=== PATIENT | female | born 1955 | race Caucasian/White ===

== ENCOUNTER 2023-12-19 19:39 | Emergency (ER) | payer OTHER ==
[2023-12-19 20:08] LABS: Absolute Eosinophils 0.3 K/uL (0-0.5); Absolute Lymphocytes (CBC) 1.4 K/uL (0.7-4.9); Absolute Monocytes 0.4 K/uL (0.1-1.3); Absolute Neutrophil 2.2 K/uL (1.8-8.0); Eosinophils % 7.4 % (0-4.4); Hematocrit 40.7 % (36.0-45.0); Hemoglobin 14.3 g/dL (12.0-15.0); Lymphocytes % 31.1 % (15.3-44.8); MCH 31.1 pg (27.0-35.0); MCHC 35.2 g/dL (32.0-36.0); MCV 88.3 fL (80-100); MPV 6.9 fL (7.6-11.3); Monocytes % 9.1 % (3.3-12.3); Neutrophils % 51.4 % (41.7-73.7); Nucleated Red Blood Cells % 0.2 % (0-0); PT Prothrombin Time 13.6 SECONDS (9.4-12.5); Platelets 221 thou/uL (152-406); Protime INR 1.22; RBC Red Blood Cell Count 4.61 M/uL (3.86-4.86); Red Cell Distribution Width 13.2 % (12.1-15.2)
[2023-12-19] MEDS ORDERED: ONDANSETRON 4 MG/2 ML VIAL ONE (20:23)
[2023-12-19] MEDS ORDERED: HEPARIN 5000 UNIT/ML 1 ML VIAL ONE (20:24)
[2023-12-19] MEDS ORDERED: NA CHLORIDE 0.9% 500 ML ONE (20:24)
[2023-12-19] MEDS ORDERED: LORAZEPAM 1 MG TABLET ONE (20:24)
[2023-12-19] MEDS ORDERED: MORPHINE 2 MG/ML SYR ONE (20:24)
[2023-12-19] MEDS ORDERED: HEPARIN/D5W 25,000 UNIT/500 ML BAG IV ONE (20:25)
[2023-12-19] MEDS ORDERED: NA CHLORIDE 0.9% 1,000 ML ONE (20:25)
[2023-12-19 20:36] LABS: ALT/SGPT 37 U/L (13-56); AST/SGOT 30 U/L (15-37); Albumin 3.6 g/dL (3.4-5.0); Albumin/Globulin Ratio 0.8 (1.1-1.8); Alkaline Phosphatase 63 U/L (45-117); Anion Gap 9.2 mEq/L (5.0-15.0); BUN Blood Urea Nitrogen 19 mg/dL (7-18); Bicarbonate 30 mEq/L (21-32); Bilirubin Total 0.4 mg/dL (0.2-1.0); Globulin 4.4 g/dL (2.3-3.5); Glomerular Filtration Rate 66 ml/min (=/>90); Glucose Level 120 mg/dL (74-106); Magnesium 2.2 mg/dL (1.6-2.4); NT PRO-BNP 52 pg/mL (<125); Potassium 3.2 mEq/L (3.5-5.1); Sodium Level 137 mEq/L (136-145); Troponin High Sensitivity 17.2 pg/mL (<58.9)
[2023-12-19 20:38] LABS: Bilirubin Direct < 0.2 mg/dL (0-0.2); Bilirubin Indirect, Calculated 0.2 mg/dL (0.2-0.8)
--- NOTE | 2023-12-19 20:49 | RAD REPORT ---
Procedure: Chest Single View HISTORY: Chest pain COMPARISON: none FINDINGS: The lungs appear clear of acute infiltrate. No significant pleural effusion noted. The heart is normal size. IMPRESSION: No acute abnormality is displayed.
--- NOTE | 2023-12-19 21:12 | ER ---
Nurse's Notes [facility] Name: Qian Dasilva Age: 68 yrs Sex: Female : 1955 Arrival Date: 12/19/2023 Time: 19:39 Bed 6 Private MD: Diagnosis: Unstable angina;Near syncope Presentation: 12/18 19:39 Chief complaint: Patient states: Dizziness when I stand for the last 3 days and today I vc1 started having chest pain. I have been off of my plavix since December 10. Coronavirus screen: Client denies travel out of the [place] in the last 14 days. At this time, the client does not indicate any symptoms associated with coronavirus-19. Ebola Screen: Patient negative for fever greater than or equal to 101.5 degrees Fahrenheit, and additional compatible Ebola Virus Disease symptoms Patient denies exposure to infectious person. Patient denies travel to an Ebola-affected area in the 21 days before illness onset. No symptoms or risks identified at this time. 19:39 Method Of Arrival: Ambulatory vc1 19:49 Initial Sepsis Screen: Does the patient meet any 2 criteria? No. Patient's initial vc1 sepsis screen is negative. Does the patient have a suspected source of infection? No. Patient's initial sepsis screen is negative. Risk Assessment: Do you want to hurt yourself or someone else? Patient reports no desire to harm self or others. Note History of carotid blockage and cardiac stent post NSTEMI 2 years ago. Onset of symptoms was December 16, 2023. Care prior to arrival: None. Activity prior to arrival: None. Mechanism of Injury: No Mechanism of Injury. Transition of care: patient was not received from another setting of care. 19:49 Acuity: ANGELO 3 vc1 Historical: - Allergies: 20:04 Demerol (Hallucinations); vc1 - Home Meds: 20:04 Plavix 75 mg Oral tablet [Active]; aspirin 81 mg Oral tablet,chewable [Active]; vc1 atorvastatin 80 mg oral tablet [Active]; valsartan-hydrochlorothiazide 320-12.5 mg oral tablet [Active]; clopidogrel 75 mg oral tablet [Active]; Vitamin D3 oral [Active]; Metoprolol Tartrate Oral [Active]; trazodone 50 mg Oral tablet every day at bedtime [Active]; Ozempic subcutaneous 0.5 mg every week [Active]; - PMHx: 20:04 Hypertensive disorder; Diabetes mellitus; Blocked Carotid arteries; vc1 - PSHx: 20:04 cardiac stent; Ligation of fallopian tube; Total abdominal hysterectomy; vc1 - Immunization history:: Client reports receiving the 2nd dose of the Covid vaccine, Pneumococcal vaccine is up to date, Flu vaccine is up to date. - Infectious Disease History:: Denies. - Social history:: Smoking status: Patient denies any tobacco usage or history of. - Family history:: not pertinent. Screenin:[address] [facility] ED Fall Risk Assessment (Adult) History of falling in the last 3 months, kj2 including since admission No falls in past 3 months (0 pts) Confusion or Disorientation No (0 pts) Intoxicated or Sedated No (0 pts) Impaired Gait No (0 pts) Mobility Assist Device Used No (0 pt) Altered Elimination No (0 pt) Score/Fall Risk Level 0 - 2 = Low Risk Maintained a safe environment, Educated pt \T\ family on fall prevention, incl call for assistance when getting out of bed, Provided non-skid footwear. Abuse screen: Denies threats or abuse. Denies injuries from another. Nutritional screening: No deficits noted. Tuberculosis screening: No symptoms or risk factors identified. Assessment: 19:50 General: Appears in no apparent distress. uncomfortable, Behavior is calm, cooperative. kj2 Pain: Complains of pain in CHEST Pain began. 19:50 Pain: Pain does not radiate. Pain began gradually. Neuro: Level of Consciousness is kj2 awake, alert, obeys commands, Oriented to person, place, time, situation. Cardiovascular: Capillary refill < 3 seconds Patient's skin is warm and dry. Respiratory: Airway is patent Respiratory effort is unlabored. GI: No signs and/or symptoms were reported involving the gastrointestinal system. : No signs and/or symptoms were reported regarding the genitourinary system. 20:37 Reassessment: Patient appears in no apparent distress at this time. Patient is alert, kj2 oriented x 3, equal unlabored respirations, skin warm/dry/pink. 21:30 Reassessment: Patient appears in no apparent distress at this time. Patient and/or cp4 family updated on plan of care and expected duration. Pain level reassessed. Patient is alert, oriented x 3, equal unlabored respirations, skin warm/dry/pink. 22:30 Reassessment: Patient appears in no apparent distress at this time. Patient and/or cp4 family updated on plan of care and expected duration. Pain level reassessed. Patient is alert, oriented x 3, equal unlabored respirations, skin warm/dry/pink. Vital Signs: 19:49 BP 149 / 68; Pulse 76; Resp 14; Temp 98; Pulse Ox 100% ; Weight 68.04 kg; Height 5 ft. vc1 2 in. ; Pain 3/10; 19:50 BP 92 / 75; Pulse 75; Resp 20; Pulse Ox 100% ; kj2 20:14 Weight 69.63 kg; cp4 20:36 BP 138 / 78; Pulse 68; Resp 20; Pulse Ox 100% on R/A; kj2 21:30 BP 144 / 61; Pulse 58; Resp 18; Pulse Ox 100% ; cp4 22:30 BP 126 / 56; Pulse 60; Resp 18; Pulse Ox 98% ; cp4 19:49 Body Mass Index 27.44 (69.63 kg, 157.48 cm) vc1 19:49 Pain Scale: Adult vc1 [place] Coma Score: 20:57 Eye Response: spontaneous(4). Motor Response: obeys commands(6). Verbal Response: sp4 oriented(5). Total: 15. ED Course: 19:39 Arm band placed on right wrist. vc1 19:44 Patient arrived in ED. ty 19:45 Kamlesh Castro MD is Attending Physician. sp4 19:50 EKG done, by ED staff, reviewed by Kamlesh Castro MD. Inserted saline lock: 22 gauge kj2 in right antecubital area, using aseptic technique. Blood collected. Flushed with 10 mL NS. 20:03 Triage completed. vc1 20:04 Nicole Liao is Primary Nurse. cp4 20:30 No provider procedures requiring assistance completed. kj2 20:35 Inserted saline lock: 22 gauge in left forearm, using aseptic technique. Blood rv1 collected. Flushed with 10 mL NS. 20:36 Ptt, Activated Sent. rv1 20:56 [facility] Transfer joiner called to initiate transfer, spoke with Mark. ty 21:[id number] Castro. ty 21:15 Unable to get sweatband cutting machine operator on the line. ty 21:31 [facility] called for [id number]. ty 22:10 [facility] called for patient transport left voice mail. ty 22:11 Troponin High Sensitivity Sent. cp4 22:16 [place] called again no answer. ty 22:19 [facility] ambulance called for patient transfer, ETA 10-15 minutes. ty 22:25 [facility] called to take ER patient [facility] on premises for 2nd floor patient, [facility] ambulance ty will take 2nd floor patient. Administered Medications: 20:40 Drug: Heparin ([place]-Bolus No thrombolytic) - HEParin IVP 60 units/kg IVP once; Max 5000 cp4 units {Co-Signature: kj2 (Taisha Cat RN).} Route: IVP; Site: right antecubital; 21:10 Follow up: Response: No adverse reaction cp4 20:41 Drug: morphine IVP or IV 2 mg IVP once over 4 mins Route: IVP; Infused Over: 4 mins; cp4 Site: right antecubital; 21:10 Follow up: Response: No adverse reaction cp4 20:41 Drug: NS 0.9% IV 500 ml IV at bolus once; to be given as a bolus over 30 minutes Route: cp4 IV; Rate: bolus; Site: left forearm; 21:01 Follow up: IV Status: Completed infusion cp4 20:42 Drug: LORazepam PO 1 mg PO once Route: PO; cp4 21:10 Follow up: Response: No adverse reaction cp4 20:42 Drug: Ondansetron IVP 8 mg IVP once; over 2 minutes Route: IVP; Site: right antecubital;cp4 21:10 Follow up: Response: No adverse reaction cp4 20:51 Drug: Heparin ([place] Drip) 12 units/kg/[place] - ([place] [address] units, D5W IV 500 ml) IV at cp4 calculated rate Per protocol; Max initial rate 1000 units/hr {Co-Signature: kj2 (Taisha Cat RN).} Route: IV; Rate: calculated rate; Site: right antecubital; 21:01 Drug: NS 0.9% IV 1000 ml IV at 125 ml/hr continuous Route: IV; Rate: 125 ml/hr; Site: cp4 left forearm; 22:11 Drug: Potassium Chloride PO 40 mEq PO once Route: PO; cp4 22:56 Follow up: Response: No adverse reaction cp4 Medication: 20:33 VIS not applicable for this client. kj2 Outcome: 21:11 ER care complete, transfer ordered by . sp4 23:28 Patient left the ED. cp4 Signatures: Debbie Pastor RN RN vc1 Hyun Weiss rv1 Kamlesh Castro MD MD sp4 Nicole Liao cp4 Hermes Newman Taisha Cat RN RN kj2 Tiasha Cat RN kj2 Corrections: (The following items were deleted from the chart) 20:32 20:31 BP 92 / 75; Pulse 75bpm; Resp 20bpm; Pulse Ox 100%; kj2 kj2 22:13 22:10 [facility] called for patient transport ty
--- NOTE | 2023-12-19 21:12 | EDPHYS ---
Physician Documentation [facility] Name: Qian Dasilva Age: 68 yrs Sex: Female : 1955 Arrival Date: 12/19/2023 Time: 19:39 Bed 6 Private MD: ED Physician Kamlesh Castro HPI: 12/18 19:45 This 68 yrs old Female presents to ER via Unassigned with complaints of Chest sp4 Pain. 20:52 This is a 68-year-old female who presents with 2 days of dizziness, chest discomfort, sp4 near syncope, shortness of breath on exertion, also there is an episode of diaphoresis prior to arrival. Has history of coronary artery disease with prior stent to right coronary artery performed at [facility]. Patient states she has been off her Plavix for the past 8 days secondary to dental procedure. Did take her Plavix this morning. She also took her aspirin 325 mg this morning. Patient reports feeling generalized weakness, dizziness, shortness of breath chest discomfort. Is compliant with her other medications. . Historical: - Allergies: 20:04 Demerol (Hallucinations); vc1 - Home Meds: 20:04 Plavix 75 mg Oral tablet [Active]; aspirin 81 mg Oral tablet,chewable [Active]; vc1 atorvastatin 80 mg oral tablet [Active]; valsartan-hydrochlorothiazide 320-12.5 mg oral tablet [Active]; clopidogrel 75 mg oral tablet [Active]; Vitamin D3 oral [Active]; Metoprolol Tartrate Oral [Active]; trazodone 50 mg Oral tablet every day at bedtime [Active]; Ozempic subcutaneous 0.5 mg every week [Active]; - PMHx: 20:04 Hypertensive disorder; Diabetes mellitus; Blocked Carotid arteries; vc1 - PSHx: 20:04 cardiac stent; Ligation of fallopian tube; Total abdominal hysterectomy; vc1 - Immunization history:: Client reports receiving the 2nd dose of the Covid vaccine, Pneumococcal vaccine is up to date, Flu vaccine is up to date. - Infectious Disease History:: Denies. - Social history:: Smoking status: Patient denies any tobacco usage or history of. - Family history:: not pertinent. ROS: 20:57 Constitutional: Negative for fever, chills, and weight loss, positive today for sp4 generalized weakness, dizziness, near syncope, shortness of breath, chest discomfort, positive today for diaphoresis 20:57 All other systems are negative, Exam: 20:57 Constitutional: This is a well developed, well nourished patient who is awake, alert, sp4 and in no acute distress. Head/Face: Normocephalic, atraumatic. Eyes: Pupils equal round and reactive to light, extra-ocular motions intact. Lids and lashes normal. Conjunctiva and sclera are not injected. Cornea within normal limits. Periorbital areas with no swelling, redness, or edema. ENT: Nares patent. No nasal discharge, no septal abnormalities noted. Tympanic membranes are normal and external auditory canals are clear. Oropharynx with no redness, swelling, or masses, exudates, or evidence of obstruction, uvula midline. Mucous membranes moist. Neck: Trachea midline, no thyromegaly or masses palpated, and no cervical lymphadenopathy. Supple, full range of motion without nuchal rigidity, or vertebral point tenderness. Chest/axilla: Normal chest wall appearance and motion. Nontender with no deformity. No lesions are appreciated. Cardiovascular: Regular rate and rhythm with a normal S1 and S2. No gallops, murmurs, or rubs. Normal PMI, no JVD. No pulse deficits. Respiratory: Lungs have equal breath sounds bilaterally, clear to auscultation and percussion. No rales, rhonchi or wheezes noted. No increased work of breathing, no retractions or nasal flaring. Abdomen/GI: Soft, with normal bowel sounds. No distension or tympany. No guarding or rebound. No evidence of tenderness throughout. Back: No spinal tenderness. No costovertebral tenderness. Skin: Warm, dry with normal turgor. Normal color with no rashes, no lesions, and no evidence of cellulitis. MS/ Extremity: Pulses equal, no cyanosis. Neurovascular intact. Full, normal range of motion. Neuro: Awake and alert, GCS 15, oriented to person, place, time, and situation. Cranial nerves II-XII grossly intact. Motor strength 5/5 in all extremities. Sensory grossly intact. Psych: Awake, alert, with orientation to person, place and time. Behavior, mood, and affect are within normal limits 20:57 ECG was reviewed by the Attending Physician. EKG at 1951 reveals normal sinus rhythm sp4 rate 74, left axis deviation. [place] normal EKG. Vital Signs: 19:49 BP 149 / 68; Pulse 76; Resp 14; Temp 98; Pulse Ox 100% ; Weight 68.04 kg; Height 5 ft. vc1 2 in. ; Pain 3/10; 19:50 BP 92 / 75; Pulse 75; Resp 20; Pulse Ox 100% ; kj2 20:14 Weight 69.63 kg; cp4 20:36 BP 138 / 78; Pulse 68; Resp 20; Pulse Ox 100% on R/A; kj2 21:30 BP 144 / 61; Pulse 58; Resp 18; Pulse Ox 100% ; cp4 22:30 BP 126 / 56; Pulse 60; Resp 18; Pulse Ox 98% ; cp4 19:49 Body Mass Index 27.44 (69.63 kg, 157.48 cm) vc1 19:49 Pain Scale: Adult vc1 [place] Coma Score: 20:57 Eye Response: spontaneous(4). Motor Response: obeys commands(6). Verbal Response: sp4 oriented(5). Total: 15. MDM: 19:47 Medical Screening Exam initiated sp4 20:57 Differential diagnosis: acute myocardial infarction, acute pericarditis, anxiety, sp4 coronary artery disease chest wall pain, congestive heart failure esophagitis, gastritis. HEART Score: History: Highly Suspicious (2), ECG: Non specific repolarization disturbance / LBTB / PM (1), Age: > or = 65 years (2), Risk Factors: > or = 3 Risk factors for atherosclerotic disease (2), Troponin: < or = 1 x Normal Limit (0), Total Score = 7. The patient was not given aspirin in the Emergency Department. Patient reports taking aspirin within the past 24 hours. Data reviewed: vital signs, nurses notes, old medical records, lab test result(s), EKG, radiologic studies, plain films. 21:02 ED course: HISTORY: Chest pain COMPARISON: none FINDINGS: The lungs appear clear of sp4 acute infiltrate. No significant pleural effusion noted. The heart is normal size. IMPRESSION: No acute abnormality is displayed. . 12/18 20:09 Order name: Protime (+INR); Complete Time: 20:35 EDMS 12/18 20:09 Order name: CBC with Automated Diff; Complete Time: 20:35 EDMS 12/18 20:18 Order name: Ptt, Activated cp4 12/18 20:27 Order name: PTT, Activated Partial Thromb; Complete Time: 20:35 EDMS 12/18 20:38 Order name: Basic Metabolic Panel; Complete Time: 20:46 EDMS 12/18 20:38 Order name: Liver (Hepatic) Function; Complete Time: 20:46 EDMS 12/18 20:38 Order name: Troponin High Sensitivity; Complete Time: 20:46 EDMS 12/18 20:38 Order name: NT PRO-BNP; Complete Time: 20:46 EDMS 12/18 20:38 Order name: Magnesium; Complete Time: 20:46 EDMS 12/18 21:19 Order name: Troponin High Sensitivity sp4 12/18 22:39 Order name: Troponin High Sensitivity; Complete Time: 22:43 EDMS 12/18 20:49 Order name: RAD; Complete Time: 21:12 EDMS 12/18 19:46 Order name: Cardiac monitoring; Complete Time: 20:16 sp4 12/18 19:46 Order name: EKG - Nurse/Tech; Complete Time: 20:17 sp4 12/18 19:46 Order name: IV Saline Lock; Complete Time: 20:17 sp4 12/18 19:46 Order name: Labs collected and sent; Complete Time: 20:17 sp4 12/18 19:46 Order name: O2 Per Protocol; Complete Time: 20:17 sp4 12/18 19:46 Order name: O2 Sat Monitoring; Complete Time: 20:17 sp4 EC:57 Rate is 74 beats/min. Rhythm is regular, Normal Sinus Rhythm. Left axis deviation sp4 noted. SC interval is normal. QRS interval is normal. QT interval is normal. No Q waves. T waves are Normal. No ST changes noted. Clinical impression: No evidence of ischemia. Interpreted by me. Reviewed by me. Administered Medications: 20:40 Drug: Heparin ([place]-Bolus No thrombolytic) - HEParin IVP 60 units/kg IVP once; Max 5000 cp4 units {Co-Signature: kj2 (Taisha Cat RN).} Route: IVP; Site: right antecubital; 21:10 Follow up: Response: No adverse reaction cp4 20:41 Drug: morphine IVP or IV 2 mg IVP once over 4 mins Route: IVP; Infused Over: 4 mins; cp4 Site: right antecubital; 21:10 Follow up: Response: No adverse reaction cp4 20:41 Drug: NS 0.9% IV 500 ml IV at bolus once; to be given as a bolus over 30 minutes Route: cp4 IV; Rate: bolus; Site: left forearm; 21:01 Follow up: IV Status: Completed infusion cp4 20:42 Drug: LORazepam PO 1 mg PO once Route: PO; cp4 21:10 Follow up: Response: No adverse reaction cp4 20:42 Drug: Ondansetron IVP 8 mg IVP once; over 2 minutes Route: IVP; Site: right antecubital;cp4 21:10 Follow up: Response: No adverse reaction cp4 20:51 Drug: Heparin ([place] Drip) 12 units/kg/[place] - ([place] [address] units, D5W IV 500 ml) IV at cp4 calculated rate Per protocol; Max initial rate 1000 units/hr {Co-Signature: kj2 (Taisha Cat RN).} Route: IV; Rate: calculated rate; Site: right antecubital; 21:01 Drug: NS 0.9% IV 1000 ml IV at 125 ml/hr continuous Route: IV; Rate: 125 ml/hr; Site: cp4 left forearm; 22:11 Drug: Potassium Chloride PO 40 mEq PO once Route: PO; cp4 22:56 Follow up: Response: No adverse reaction cp4 Disposition Summary: 12/19/23 21:11 Transfer Ordered Notes: Transfer Location: [facility] sp4 Reason: Higher level of care sp4 Condition: Stable sp4 Problem: new sp4 Symptoms: have improved sp4 Accepting Physician: [facility], Attending MD (12/19/23 23:28) cp4 Diagnosis - Unstable angina sp4 - Near syncope sp4 Forms: - Medication Reconciliation Form sp4 - SBAR form sp4 Signatures: Dispatcher [employer] Debbie Duran RN RN 1 Kamlesh Castro MD MD sp4 Nicole Liao cp4 Taisha Cat RN kj2 Corrections: (The following items were deleted from the chart) 19:46 19:46 BASIC METABOLIC PANEL+C.LAB.BRZ ordered. EDMS EDMS 19:46 19:46 CBC+H.LAB.BRZ ordered. EDMS EDMS 19:46 19:46 HEPATIC FUNCTION+C.LAB.BRZ ordered. EDMS EDMS 19:46 19:46 MAGNESIUM+C.LAB.BRZ ordered. EDMS EDMS 19:46 19:46 PROBNP+C.LAB.BRZ ordered. EDMS EDMS 19:46 19:46 PROTIME (+INR)+COAG.LAB.BRZ ordered. EDMS EDMS 19:46 19:46 Troponin High Sensitivity+C.LAB.BRZ ordered. EDMS EDMS 19:46 19:46 Chest Single View+RAD.RAD.BRZ ordered. EDMS EDMS 23:28 21:11 [facility], Attending sp4 cp4
[2023-12-19] MEDS ORDERED: POTASSIUM CL SA 10 MEQ TAB PO ONE (21:58)
[2023-12-20 09:16] VITALS: TEMP 98
[2023-12-20 09:34] VITALS: BP 126/56; O2SAT 98
--- NOTE | 2023-12-20 12:14 | EKG ---
Test Date: 2023-12-19 Test Time: 19:51:04 Production Administrator: JAMEY MEASUREMENT RESULTS: Intervals: Rate: 74 NC: 154 QRSD: 88 QT: 396 QTc: 439 [place]: P: 63 NC: 154 QRS: -35 T: 30 INTERPRETIVE STATEMENTS: Normal sinus rhythm Left axis deviation Abnormal ECG Compared to ECG 12/19/2023 19:50:19 No significant changes Electronically Signed On 12-20-23 12:12:31 CDT by Harinder Prince
--- NOTE | 2023-12-20 12:14 | EKG ---
Test Date: 2023-12-19 Test Time: 19:50:19 First Breaker Feeder: JAMEY MEASUREMENT RESULTS: Intervals: Rate: 69 NM: 154 QRSD: 90 QT: 400 QTc: 428 [place]: P: 68 NM: 154 QRS: -31 T: 30 INTERPRETIVE STATEMENTS: Sinus rhythm Left axis deviation Abnormal ECG No previous ECG available for comparison Electronically Signed On 12-20-23 12:12:33 CDT by Harinder Prince
== END 2023-12-19 23:28 | disposition short-term general hospital (02) ==
LOC: ER 19:39
DX: I20.0 Unstable angina (principal); R55 Syncope and collapse; R53.1 Weakness; R06.02 Shortness of breath; I10 Essential (primary) hypertension; E11.9 Type 2 diabetes mellitus without complications; Z95.818 Presence of other cardiac implants and grafts; Z79.01 Long term (current) use of anticoagulants; Z79.82 Long term (current) use of aspirin
CPT/HCPCS: 85025; 80048; 36415; 83735; 85610; 80076; 85730; 84484 ×2; 83880; 71045; J1644; J2270; J2405; J7040; J7030; 93005